=== PATIENT | male | born 1985 | race Caucasian/White ===

== ENCOUNTER 2018-12-26 10:21 | Emergency (ER) | payer MEDICAID ==
[~2018-12-26] VITALS: Ht 182.9 cm; Wt 81.8 kg
[~2018-12-26 10:21] MED LIST: NO HOME MEDS
[2018-12-26 10:26] VITALS: BP 121/86
== END 2018-12-26 11:08 | disposition home or self-care (01) ==
LOC: ER 10:22
DX: F12.980 Cannabis use, unspecified with anxiety disorder (principal); F17.200 Nicotine dependence, unspecified, uncomplicated
CPT/HCPCS: 93005; 99283

== ENCOUNTER 2020-10-18 20:12 | Emergency (ER) | payer MEDICAID ==
[~2020-10-18] VITALS: Ht 182.9 cm; Wt 81.8 kg
[2020-10-18 20:19] VITALS: BP 147/94
[2020-10-18] MEDS ORDERED: SULF1TAB45 PO (23:06)
[2020-10-18] MEDS ORDERED: MUPI22OI30 TOP (23:06)
[2020-10-18] MEDS ORDERED: CEPH250T PO (23:06)
== END 2020-10-18 23:57 | disposition home or self-care (01) ==
LOC: ER 20:13
DX: S81.812D Laceration without foreign body, left lower leg, subsequent encounter (principal); F12.90 Cannabis use, unspecified, uncomplicated; Z72.89 Other problems related to lifestyle; Z79.2 Long term (current) use of antibiotics; Z79.899 Other long term (current) drug therapy; X58.XXXD Exposure to other specified factors, subsequent encounter
CPT/HCPCS: 99283

== ENCOUNTER 2025-01-21 00:16 | Emergency (ER) | payer MEDICAID ==
[~2025-01-21] VITALS: Ht 182.9 cm; Wt 78.8 kg
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
[2025-01-21 00:55] VITALS: TEMP 98.6
[2025-01-21] MEDS: ketorolac trometh 15mg/ml vial 15 MG/ML ML IV ONE (01:02)
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
[2025-01-21 01:45] VITALS: BP 113/66; PULSE 73; RESP 14; O2SAT 97
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
== END 2025-01-21 04:30 | disposition home or self-care (01) ==
LOC: ER 00:17
DX: S02.40FA Zygomatic fracture, left side, initial encounter for closed fracture (principal); S00.412A Abrasion of left ear, initial encounter; F12.90 Cannabis use, unspecified, uncomplicated; F10.90 Alcohol use, unspecified, uncomplicated; Y90.9 Presence of alcohol in blood, level not specified; W22.8XXA Striking against or struck by other objects, initial encounter; Y93.89 Activity, other specified; Y92.89 Other specified places as the place of occurrence of the external cause; Y99.8 Other external cause status
CPT/HCPCS: 70450; 70486; 72125; 96374; 99285; J1885